=== PATIENT | female | born 1960 | race Caucasian/White ===

== ENCOUNTER → 2019-10-10 16:02 | Outpatient (BNVA) | payer BC, OTHER, SELFPAY | PROVIDERS: Family Provider Nurse Practitioner Family; PCP Nurse Practitioner Family; Visit Provider Emergency Medicine | DX: S49.91XA Unspecified injury of right shoulder and upper arm, initial encounter (principal); S00.93XA Contusion of unspecified part of head, initial encounter | CPT/HCPCS: 73030 ==

== ENCOUNTER → 2019-12-01 16:48 | Outpatient (BNVA) | payer BC, SELFPAY | PROVIDERS: Family Provider Nurse Practitioner Family; PCP Nurse Practitioner Family; Visit Provider Nurse Practitioner Family | DX: J06.9 Acute upper respiratory infection, unspecified (principal); Z20.828 Contact with and (suspected) exposure to other viral communicable diseases | CPT/HCPCS: 87635 ==

== ENCOUNTER → 2020-01-15 10:16 | Outpatient (BNVA) | payer BC, SELFPAY | PROVIDERS: Family Provider Nurse Practitioner Family; PCP Nurse Practitioner Family; Visit Provider Emergency Medicine | DX: Z20.828 Contact with and (suspected) exposure to other viral communicable diseases (principal) | CPT/HCPCS: 87635 ==

== ENCOUNTER 2020-01-20 07:48 | Day surgery (SDC) | payer BC, SELFPAY ==
[2020-01-15 09:36] VITALS: BMI 50.5
[2020-01-20 08:55] VITALS: BP 119/44; PULSE 77; RESP 18; TEMP 36.8; O2SAT 99
[2020-01-20] MEDS: sodium chloride 0.9% 1,000 ML 30 ML IV (08:55)
--- NOTE | 2020-01-20 09:25 | ANES.PREANE2 ---
Pre-Anesthetic Assessment Pre-Anesthetic Assessment: Height/Weight: Height 1.6 m Weight 129.274 kg Temp Pulse Resp BP Pulse Ox 98.2 F 77 18 119/44 99 01/20/20 08:55 01/20/20 08:55 01/20/20 08:55 01/20/20 08:55 01/20/20 08:55 Preop Diagnosis: Epigastric pain Proposed Procedure: Operation Date: 01/20/20 09:15 Proposed Procedures p EGD 14626 R10.13(Not Applicable) - Elliott Souza MD Was Beta Renata taken within 24 hours: Yes Last intake: Intake Last Liquid Date 01/19/20 Last Liquid Time 20:00 Last Solid Date 01/19/20 Last Solid Time 20:00 Social: Social History: No alcohol and No tobacco Exam: Pre-Anes Outpt Exam: alert and oriented x 3 Airway: MP: 2 Pulmonary: Pulmonary: SOB Comments: Covid Positive 3 weeks ago; now recovering; residual SOB CV/HEM: CV/HEM: HTN : : None reported Hepatic: Hepatic: None reported GI: GI: GERD Metabolic: Metabolic: Morbid obesity Musc/skel: Musc/skel: None reported Neuropsych: Neuropsych: None reported Anesthetic Plan: ASA status: 3 Anesthesia: MAC Meds/Allergies Current Medications: Current Medications Generic Name Dose Route Start Last Admin Trade Name Freq PRN Reason Stop Dose Admin Sodium Chloride 1,000 mls @ 30 ml s/hr 01/20/20 08:15 01/20/20 08:55 Sodium Chloride 0.9% IV 30 mls/hr .Q24H CARITO Administration PFSH Anesthesia PFSH: Medical History Contusion of head Umbilical hernia without mention of obstruction or gangrene Family History Father CAD (coronary artery disease) Mother Cancer breast Family/Other Cancer 2 aunts with uterine cancer Other Diabetes Hypertension Denies family history of Anesthesia complication Bleeding disorder Social History Smoking and tobacco status: never smoked Alcohol intake: never Lives independently: Yes Marital status: / Current occupational status: employed History of recent travel: No Data Anesthesia Cardiac Studies: No Data to Display
--- NOTE | 2020-01-20 09:39 | W.PM.OPSUD ---
Surgery/Procedure H&P Update DATE OF PROCEDURE: January 20, 2020 DATE H&P PERFORMED: 12/24/19 H&P UPDATE INFORMATION: I have reviewed H&P completed within last 30 days, I have examined patient prior to procedure and No changes to prior documentation PREOP DIAGNOSIS: Epigastric pain PRIMARY INDICATION FOR PROCEDURE: The same PLANNED PROCEDURE: Operation Date: 01/20/20 09:15 Proposed Procedures p EGD 32129 R10.13(Not Applicable) - Elliott Souza MD
[2020-01-20 11:13] VITALS: BP 102/84; PULSE 82; RESP 18; TEMP 36.6; O2SAT 97
--- NOTE | 2020-01-20 11:20 | ANE.PACU2 ---
Inpatient post-anesthesia follow up: Airway intact: Yes Vital signs: Temperature 97.8 F Pulse Rate 82 Respiratory Rate 18 Blood Pressure 102/84 Pulse Oximetry 97 Oxygen Delivery Me thod Room Air Oxygen Flow Rate Fraction of Inspir ed Oxygen Hydration adequate: Yes Nausea and vomiting: No Pain level: 2 Mental status: Baseline
[2020-01-20 11:29] VITALS: BP 139/85; PULSE 79; RESP 18; O2SAT 99
[2020-01-21 05:54] LABS: H. Pylori / CLO Test Negative
== END 2020-01-20 11:34 | disposition home or self-care (01) ==
PROVIDERS: PCP Emergency Medicine; Visit Provider Surgery
PROC: 0DJ08ZZ Inspection of Upper Intestinal Tract, Via Natural or Artificial Opening Endoscopic (ICD-10-PCS; CPT 43235; principal; 2020-01-20 09:15)
DX: R10.13 Epigastric pain (principal); K21.9 Gastro-esophageal reflux disease without esophagitis; K29.70 Gastritis, unspecified, without bleeding; I10 Essential (primary) hypertension; E66.01 Morbid (severe) obesity due to excess calories; Z68.43 Body mass index [BMI] 50.0-59.9, adult
CPT/HCPCS: 12345; 43239; 87077; J2704; J3490; J7030

== ENCOUNTER → 2020-08-04 10:57 | Outpatient (BNVA) | payer BC, SELFPAY | PROVIDERS: PCP Emergency Medicine; Visit Provider Family Medicine | DX: N95.0 Postmenopausal bleeding (principal); B37.2 Candidiasis of skin and nail; M62.830 Muscle spasm of back; Z12.39 Encounter for other screening for malignant neoplasm of breast; I10 Essential (primary) hypertension; Z13.220 Encounter for screening for lipoid disorders; Z13.6 Encounter for screening for cardiovascular disorders; Z13.1 Encounter for screening for diabetes mellitus | CPT/HCPCS: 80053; 80061; 85025 ==

== ENCOUNTER → 2020-08-10 10:58 | Outpatient (BNVA) | payer BC, SELFPAY | PROVIDERS: PCP Emergency Medicine; Visit Provider Family Medicine | DX: I10 Essential (primary) hypertension (principal); Z13.1 Encounter for screening for diabetes mellitus; Z13.220 Encounter for screening for lipoid disorders; Z13.6 Encounter for screening for cardiovascular disorders; N95.0 Postmenopausal bleeding | CPT/HCPCS: 80053; 80061; 85025 ==

== ENCOUNTER → 2020-11-28 18:00 | Outpatient (BNVA) | payer BC, SELFPAY | PROVIDERS: PCP Emergency Medicine; Visit Provider Family Medicine | DX: I10 Essential (primary) hypertension (principal) | CPT/HCPCS: 80048; 85025 ==

== ENCOUNTER → 2021-11-21 10:36 | Outpatient (BNVA) | payer BC, SELFPAY | PROVIDERS: PCP Family Medicine; Visit Provider Family Medicine | DX: B37.3 Candidiasis of vulva and vagina (principal); I10 Essential (primary) hypertension; E78.00 Pure hypercholesterolemia, unspecified; Z12.11 Encounter for screening for malignant neoplasm of colon; Z01.419 Encounter for gynecological examination (general) (routine) without abnormal findings; Z12.31 Encounter for screening mammogram for malignant neoplasm of breast | CPT/HCPCS: 80053; 80061 ==

== ENCOUNTER → 2022-07-16 10:56 | Outpatient (BNVA) | payer BC, SELFPAY | PROVIDERS: PCP Family Medicine; Visit Provider Family Medicine | DX: M25.551 Pain in right hip (principal); M79.651 Pain in right thigh; J45.20 Mild intermittent asthma, uncomplicated; I10 Essential (primary) hypertension; E78.00 Pure hypercholesterolemia, unspecified; N32.81 Overactive bladder; Z13.1 Encounter for screening for diabetes mellitus; R35.0 Frequency of micturition | CPT/HCPCS: 73502; 73552; 80053; 80061; 81000; 83036 ==

== ENCOUNTER → 2022-11-22 09:52 | Outpatient (BNVA) | payer BC, SELFPAY | PROVIDERS: PCP Family Medicine; Visit Provider Family Medicine | DX: I10 Essential (primary) hypertension (principal); K21.9 Gastro-esophageal reflux disease without esophagitis; N32.81 Overactive bladder; J45.20 Mild intermittent asthma, uncomplicated; A09 Infectious gastroenteritis and colitis, unspecified | CPT/HCPCS: 74018 ==

== ENCOUNTER → 2022-12-10 14:33 | Outpatient (BNVA) | payer BC, SELFPAY | PROVIDERS: PCP Family Medicine; Visit Provider Family Medicine | DX: M19.90 Unspecified osteoarthritis, unspecified site (principal); E78.00 Pure hypercholesterolemia, unspecified; I10 Essential (primary) hypertension; R35.0 Frequency of micturition; Z13.1 Encounter for screening for diabetes mellitus; I72.8 Aneurysm of other specified arteries; Z12.11 Encounter for screening for malignant neoplasm of colon; Z00.00 Encounter for general adult medical examination without abnormal findings; Z12.31 Encounter for screening mammogram for malignant neoplasm of breast; Z13.220 Encounter for screening for lipoid disorders; Z13.6 Encounter for screening for cardiovascular disorders; K59.04 Chronic idiopathic constipation | CPT/HCPCS: 80053; 80061; 83036 ==

== ENCOUNTER → 2023-06-10 13:52 | Outpatient (BNVA) | payer BC, SELFPAY | PROVIDERS: PCP Family Medicine; Visit Provider Family Medicine | DX: R07.9 Chest pain, unspecified (principal); I10 Essential (primary) hypertension; R10.13 Epigastric pain; K29.70 Gastritis, unspecified, without bleeding; I72.8 Aneurysm of other specified arteries; K21.9 Gastro-esophageal reflux disease without esophagitis; R07.89 Other chest pain; E78.00 Pure hypercholesterolemia, unspecified | CPT/HCPCS: 85025; 93005 ==

== ENCOUNTER 2023-11-18 10:16 | Outpatient (CLI) | payer BC, SELFPAY | END 2023-11-18 10:17 | disposition home or self-care (01) | LOC: SLEEP 10:17 | PROVIDERS: PCP Family Medicine; Visit Provider Family Medicine | DX: G47.33 Obstructive sleep apnea (adult) (pediatric) (principal) | CPT/HCPCS: G0399 ==

== ENCOUNTER → 2024-05-12 10:40 | Outpatient (BNVA) | payer BC, SELFPAY | PROVIDERS: PCP Family Medicine; Visit Provider Nurse Practitioner | DX: S59.901A Unspecified injury of right elbow, initial encounter (principal); W19.XXXA Unspecified fall, initial encounter | CPT/HCPCS: 73080 ==